=== PATIENT | female | born 1930 | race Caucasian/White ===

== ENCOUNTER 2018-12-27 12:32 | Inpatient (IN) | payer MEDICARE, OTHER ==
[~2018-12-27] VITALS: Ht 160 cm; Wt 76.0 kg
[2018-12-27] MEDS ORDERED: AMLO2.5T78 PO (13:42)
[2018-12-27] MEDS ORDERED: CALC500T91 PO (13:42)
[2018-12-27] MEDS ORDERED: DAP100 PO (13:43)
[2018-12-27] MEDS ORDERED: IPRATROPIUM (NEB) 0.5 MG/2.5 ML AMP NEB STA (13:47)
[2018-12-27] MEDS ORDERED: ALBUTEROL 0.083% (NEB) 2.5 MG/3 ML AMP NEB STA (13:47)
[2018-12-27] MEDS ORDERED: FURO-110 PO (14:28)
[2018-12-27] MEDS ORDERED: LEVO200T6 PO (14:28)
[2018-12-27] MEDS ORDERED: FER325 PO (14:28)
[2018-12-27] MEDS ORDERED: LISI40TA3 PO (14:29)
[2018-12-27] MEDS ORDERED: METO-319 PO (14:29)
[2018-12-27] MEDS ORDERED: MULTI PO (14:29)
[2018-12-27] MEDS ORDERED: OMEG1CAP2 PO (14:30)
[2018-12-27] MEDS ORDERED: ASCO500C7 PO (14:30)
[2018-12-27] MEDS ORDERED: ZOC10 PO (14:30)
[2018-12-27] MEDS ORDERED: COU5 PO (14:31)
[2018-12-27] MEDS ORDERED: VITA100T9 PO (14:31)
[2018-12-27] MEDS ORDERED: ACETAMINOPHEN 325 MG TAB PO PRN ×2 (15:00)
[2018-12-27] MEDS ORDERED: FUROSEMIDE 20 MG INJ IV ONE (15:00)
[2018-12-27] MEDS ORDERED: ONDANSETRON 4 MG INJ IV PRN ×2 (15:00)
--- NOTE | 2018-12-27 15:14 | ERD ---
ER Documentation Chief Complaint Chief Complaint BIB RA S/P GROUND LEVEL FALL HIT HEAD. ON COUMADIN. PT A&OX4 HPI History is unobtainable from patient given her clinical condition. This is an 88-year-old female with a history of dementia, hypertension, CHF and atrial fib who presents to the emergency room after ground-level fall. The patient was walking and she slid backwards and hit her head. There is no loss of consciousness however there was concern given the fact that she is on Coumadin. The patient was transported to the ER today for evaluation of her symptoms. According to EMS this patient is at her baseline and is only alert to person. ROS All systems reviewed and are negative except as per history of present illness. Medications Home Meds Reported Medications Warfarin Sod (Coumadin) 5 Mg Tab, 5 MG PO DAILY, TAB 12/27/18 Vitamin E Mixed (Vitamin E) 100 Unit Tablet, 400 UNIT PO DAILY, TAB 12/27/18 Ascorbic Acid* (Vitamin C*) 500 Mg Capsule.sa, 500 MG PO DAILY, CAP 12/27/18 Simvastatin (Simvastatin) 10 Mg Tablet, 10 MG PO QHS, #30 TAB 12/27/18 [place]-3 Acid Ethyl Esters (Lovaza) 1 Gm Capsule, 1 GM PO DAILY, CAP 12/27/18 Multivitamins* (Theragran*) 1 Tab Tab, 1 TAB PO DAILY, TAB 12/27/18 Metoprolol Succinate* (Toprol XL*) 50 Mg Tab.er.24h, 50 MG PO DAILY, #30 TAB 12/27/18 Lisinopril* (Lisinopril*) 40 Mg Tablet, 40 MG PO DAILY, #30 TAB 12/27/18 Levothyroxine Sodium* (Levothyroxine Sodium*) 200 Mcg Tablet, 200 MCG PO BEFORE BREAKFAST, #30 TAB 12/27/18 Furosemide* (Lasix*) 20 Mg Tablet, 20 MG PO DAILY, TAB 12/27/18 Ferrous Sulfate* (Ferrous Sulfate*) 325 Mg Tabec, 325 MG PO DAILY, TAB 12/27/18 Dapsone* (Dapsone*) 100 Mg Tablet, 50 MG PO DAILY, #30 TAB 12/27/18 Calcium Carbonate ([id number]) 500 Mg Tablet, 500 MG PO BID, TAB 12/27/18 Amlodipine Besylate* (Amlodipine Besylate*) 2.5 Mg Tablet, 2.5 MG PO DAILY, #30 TAB 12/27/18 Allergies Allergies: Coded Allergies: No Known Allergy (Unverified , 12/27/18) PMhx/Soc Anesthesia Reaction: No Hx Neurological Disorder: No Hx Respiratory Disorders: Yes (CRF) Hx Cardiac Disorders: Yes (HTN, CAD, CHF, CVA) Hx Psychiatric Problems: Yes (DEMENTIA) Hx Miscellaneous Medical Probl: No Hx Alcohol Use: No Hx Substance Use: No Hx Tobacco Use: No Smoking Status: Never smoker Physical Exam Vitals Vital Signs Date Temp Pulse Resp B/P (MAP) Pulse Ox O2 O2 Flow FiO2 Time Delivery Rate 12/27/18 107 23 184/89 100 Venturi 14:24 (120) Mask 12/27/18 2.0 13:57 12/27/18 99 20 95 Nasal 2.0 13:57 Cannula 12/27/18 99.4 90 16 175/80 99 12:38 (111) 12/27/18 Nasal 2 12:35 Cannula Physical Exam INITIAL VITAL SIGNS: Reviewed by me GENERAL: The patient is frail-appearing elderly female, mild respiratory distress HEENT: Small 2 cm x 2 cm occipital hematoma, no depressed skull fractures, pupils equal, round, and reactive to light. EOMI. There is no scleral icterus. NECK: C-spine is soft and supple, there is no meningismus. There is no cervical lymphadenopathy. LUNGS: Breath sounds bilaterally with end expiratory wheezing HEART: Irregularly irregular rhythm, no murmurs, clicks, rubs or gallops. ABDOMEN: Soft, non-tender, non-distended. There are bowel sounds in all four quadrants. No rebound or guarding. EXTREMITIES: There is no peripheral cyanosis or edema. No focal swelling or erythema. NEUROLOGICAL: The patient moves all four extremities with 5/5 strength. Cranial nerves II - XII are intact. Alert and oriented person only SKIN: There is no apparent rash or petechiae. HEME/LYMPHATIC: There is no evidence of excessive bruising or lymphedema. PSYCHIATRIC: The patient does not appear anxious or depressed. Result Diagram: 12/27/18 1250 12/27/18 1347 Results 24 hrs Laboratory Tests Test 12/27/18 12:50 12/27/18 13:47 White Blood Count 7.6 10^3/ul Red Blood Count 3.82 10^6/ul Hemoglobin 10.7 g/dl Hematocrit 35.1 % Mean Corpuscular Volume 91.9 fl Mean Corpuscular Hemoglobin 28.0 pg Mean Corpuscular Hemoglobin Concent 30.5 g/dl Red Cell Distribution Width 18.1 % Platelet Count 241 10^3/UL Mean Platelet Volume 10.1 fl Immature Granulocytes % 0.400 % Neutrophils % 85.0 % Lymphocytes % 5.4 % Monocytes % 8.8 % Eosinophils % 0.0 % Basophils % 0.4 % Nucleated Red Blood Cells % 0.0 /100WBC Immature Granulocytes # 0.030 10^3/ul Neutrophils # 6.5 10^3/ul Lymphocytes # 0.4 10^3/ul Monocytes # 0.7 10^3/ul Eosinophils # 0.0 10^3/ul Basophils # 0.0 10^3/ul Nucleated Red Blood Cells # 0.0 10^3/ul Prothrombin Time 14.7 Sec Prothrombin Time Ratio 1.1 INR International Normalized Ratio 1.14 Activated Partial Thromboplast Time 24.9 Sec Sodium Level 135 mmol/L Potassium Level 4.1 mmol/L Chloride Level 98 mmol/L Carbon Dioxide Level 25 mmol/L Anion Gap 12 Blood Urea Nitrogen 17 mg/dl Creatinine 0.47 mg/dl Est Glomerular Filtrat Rate mL/min mL/min Glucose Level 123 mg/dl Calcium Level 9.3 mg/dl Troponin I 0.025 ng/ml Current Medications Medications Dose Sig/Rock Start Time Status Last (Trade) Ordered Route PRN Stop Time Admin Dose Reason Admin Albuterol 5 mg ONCE STAT 12/27/18 DC 12/27/18 (Proventil NEB 13:47 13:56 0.083% (Neb)) 12/27/18 13:48 Ipratropium 0.5 mg ONCE STAT 12/27/18 DC 12/27/18 Evans NEB 13:47 13:56 (Atrovent 12/27/18 13:48 0.02% (Neb)) Furosemide 20 mg ONCE ONCE 12/27/18 DC (Lasix) IV 15:00 12/27/18 15:04 Ondansetron 4 mg ER BRIDGE 12/27/18 HCl (Zofran PRN IV 15:00 Inj) NAUSEA/VOMITI 12/28/18 14:59 NG 650 mg ER BRIDGE 12/27/18 Acetaminophen PRN PO 15:00 (Tylenol .MILD PAIN 12/28/18 14:59 Tab) 1-3 OR TEMP Ondansetron 4 mg ER BRIDGE 12/27/18 HCl (Zofran PRN IV 15:00 Inj) NAUSEA/VOMITI 12/28/18 14:59 NG 650 mg ER BRIDGE 12/27/18 Acetaminophen PRN PO 15:00 (Tylenol .MILD PAIN 12/28/18 14:59 Tab) 1-3 OR TEMP Procedures/MDM EKG: Rate/Rhythm: A. 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 There is age compatible cortical atrophy with proportional dilatation of the lateral ventricles. 2. There is encephalomalacia in the left frontal lobe laterally consistent with an old left MCA infarct. 3. Extensive deep white matter ischemic changes are present. 4. Small air-fluid level in the left maxillary sinus. This 88-year-old female presents to the emergency room for evaluation of ground- level fall. The patient is on Coumadin and slipped and fell backwards and hit her head. On my exam the patient did have a small occipital hematoma however there was no depressed skull fractures. CT the brain is normal with no signs of intracranial hemorrhage. This patient was mildly tachypneic and tachycardic on my initial examination. She does have coarse breath sounds bilaterally and was given a breathing treatment. After the breathing treatment the patient continued to have coarse breath sounds and was tachypneic and her pulse oxygen level was 91% on 2 L. Given her age, and her respiratory distress the patient will be placed in for admission at this time. Her chest x-ray does show some pulmonary vascular congestion and there could be a component of fluid overload for her at this time. I have spoken to admitting physician Dr. Saez who accepts this patient. The patient will be placed in for admission at this time on the telemetry floor. Departure Diagnosis: Primary Impression: Acute head injury Additional Impressions: CHF exacerbation Shortness of breath Condition: ORA Bansal DO Dec 27, 2018 15:14
[2018-12-27] MEDS ORDERED: FAMOTIDINE 20 MG TAB PO SCH (15:30)
[2018-12-27] MEDS ORDERED: NACL 0.9% 3 ML SYG IV SCH (15:30)
[2018-12-27 16:15] VITALS: BP 156/77; PULSE 85; RESP 18
[2018-12-27 16:36] VITALS: Ht 160 cm; Wt 76.0 kg
[2018-12-27] MEDS ORDERED: WARFARIN 5 MG TAB PO SCH (17:00)
[2018-12-27 17:23] VITALS: PULSE 82
[2018-12-27] MEDS: FAMOTIDINE 20 MG TAB PO SCH (18:24)
[2018-12-27] MEDS: LISINOPRIL 20 MG TAB PO SCH (18:25)
--- NOTE | 2018-12-27 19:46 | CONS ---
DATE OF ADMISSION: 12/27/2018 DATE OF CONSULTATION: 12/27/2018 REASON FOR CONSULTATION: Shortness of breath. Thank you, Dr. Krishna, for this consultation. HISTORY OF PRESENT ILLNESS: This is an 88-year-old lady who had a ground-level fall and brought to [facility] emergency room for further evaluation. Here, she has been somewhat confused and over the past few hours, has had worsening dyspnea. The patient is disoriented to place and person, unable to give me further details. PAST MEDICAL HISTORY: Essential hypertension, hypothyroidism and hyperlipidemia. MEDICATIONS: Include: 1. Coumadin. 2. Lisinopril. 3. Amlodipine. REVIEW OF SYSTEMS: A 12-point review of systems currently unable to perform. PHYSICAL EXAMINATION: GENERAL: Elderly-appearing lady, appears comfortable at rest, in no acute distress. No accessory mu scle use. VITAL SIGNS: Currently afebrile, pulse is 100, blood pressure 180/89, O2 saturation 96% on 2 liters nasal cannula. NECK: Supple. No JVD or lymphadenopathy. CARDIAC: S1, S2. No added sounds or murmurs. CHEST: Diminished air entry bilaterally. ABDOMEN: Soft, nontender. No guarding or rebound. EXTREMITIES: No cyanosis, clubbing. NEUROLOGIC: Appears grossly intact. No focal deficits. IMAGING: Chest x-ray was performed and shows mild CHF, possible small right effusion. CT of the bra in shows encephalomalacia with prior CVA. IMPRESSION: 1. Mechanical fall. 2. Congestive cardiac failure, likely etiology of her dyspnea. 3. History of essential hypertension. 4. History of chronic anticoagulation. RECOMMENDATIONS: 1. Discontinue chronic anticoagulation. 2. Fall precautions. 3. Aspiration precautions and speech therapy evaluation. 4. Gentle diuresis. 5. DVT and GI prophylaxes. 6. Address code status and goals of care. Dictated By: AYAZ HEWITT MD SV/NTS Conf#: [id number] DID#: [id number] CC: ROYER KRISHNA MD;*EndCC*
[2018-12-27 20:03] VITALS: BP 154/76; PULSE 89; RESP 18
[2018-12-27] MEDS: DAPSONE 100 MG TAB PO SCH (20:44)
[2018-12-27] MEDS ORDERED: FUROSEMIDE 40 MG INJ IV SCH (21:00)
--- NOTE | 2018-12-27 22:00 | HP ---
DATE OF ADMISSION: 12/27/2018 REASON FOR VISIT: Status post fall. HISTORY OF PRESENT ILLNESS: An 88-year-old female with hypertension, chronic congestive heart failure , and chronic atrial fibrillation who was brought into the emergency room after she had a ground leve l fall at a assisted facility. The patient hit her head against the ground. She reported mil d headaches. Initial evaluation in the emergency room included a CAT scan of the brain. There was no evidence of intracranial hemorrhage. However, the patient was found to be hypoxic. She was in atrial fibrillati on with normal rate. Chest x-ray showed mild pulmonary vascular congestion in wall and left-sided pl eural adhesion. PAST MEDICAL HISTORY: 1. Hypertension. 2. Congestive heart failure. 3. Chronic atrial fibrillation. 4. Alzheimer's dementia. 5. Hypothyroidism. PHYSICAL EXAMINATION: GENERAL: Well-developed, well-nourished elderly female who is in mild respiratory distress. VITAL SIGNS: Stable. She is afebrile. HEENT: Extraocular muscles intact. Pupils equal, round, and reactive to light bilaterally. Sclerae anicteric. Oropharynx is clear and moist. NECK: Supple. No JVD and no carotid bruits. LUNGS: Mild crackles at the bases. Bilateral rhonchi. CARDIAC: Irregularly irregular. No murmurs or gallops. ABDOMEN: Soft. Nontender and nondistended. Normoactive bowel sounds. EXTREMITIES: No clubbing, cyanosis, or edema. NEUROLOGIC: Grossly nonfocal. LABORATORY DATA: The patient's metabolic panel and CBC were within normal limits. INR was 1.4. ASSESSMENT: 1. An 88-year-old female status post nontraumatic ground level fall. 2. Congestive heart failure . 3. Chronic atrial fibrillation, weight controlled. 4. Hypertension. 5. Hypothyroidism. 6. Alzheimer's dementia. PLAN: 1. Place in tele observation. 2. IV Lasix 40 mg b.i.d. 3. Resume selective home medications. 4. Pulmonary consultation was requested. Dictated By: ROYER NIX/BERNIE Conf#: [id number] DID#: [id number] CC: ROYER STOKES MD; AYAZ HEWITT MD;*End*
[2018-12-27 23:05] VITALS: PULSE 81
[2018-12-28] VITALS (15 sets, daily range): BP systolic 124–150; BP diastolic 59–90; PULSE 71–114; RESP 18–22
[2018-12-28] MEDS: LEVOTHYROXINE 100 MCG TAB PO SCH (06:36)
[2018-12-28] MEDS ORDERED: POTASSIUM CHLORIDE (SR) 20 MEQ TAB PO STA (08:16)
[2018-12-28] MEDS: DAPSONE 100 MG TAB PO SCH (08:40)
[2018-12-28] MEDS: LISINOPRIL 20 MG TAB PO SCH (08:40)
[2018-12-28] MEDS: AMLODIPINE 2.5 MG TAB PO SCH (08:40)
[2018-12-28] MEDS ORDERED: METOPROLOL (XL) 50 MG TAB PO SCH (09:00)
[2018-12-28] MEDS: POTASSIUM CHLORIDE (SR) 20 MEQ TAB PO SCH ×2 (09:29→21:22)
[2018-12-28] MEDS: FUROSEMIDE 40 MG INJ IV SCH ×2 (09:29→21:23)
[2018-12-28] MEDS: ENOXAPARIN 40 MG/0.4 ML SYG SC SCH (09:30)
--- NOTE | 2018-12-28 10:10 | PN ---
Date/Time of Note Date/Time of Note DATE: 12/28/18 TIME: 10:04 Subjective Patient is nonverbal. Appears comfortable. Daughter was at the bedside. Objective Vitals Vital Signs Date Temp Pulse Resp B/P (MAP) Pulse Ox O2 O2 Flow FiO2 Time Delivery Rate 12/28/18 75 08:01 12/28/18 97.7 19 124/62 93 07:32 (82) 12/28/18 Nasal 4.0 06:00 Cannula 12/28/18 100 00:34 Intake and Output 12/27/18 12/27/18 12/28/18 1515:00 23:00 07:00 IntakeIntake Total 60 ml BalanceBalance 60 ml Lungs decreased breath sounds at the bases. Bilateral rhonchi Cardiac irregularly irregular Abdomen soft nontender nondistended normoactive bowel sounds Extremities no clubbing cyanosis or edema Neurological, patient is nonverbal due to her underlying dementia. She moves all extremities. Results Result Diagram: 12/28/18 0609 12/28/18 0609 Medications Medications Current Medications IV Flush (NS 3 ml) 3 ml PER PROTOCOL IV ; Start 12/27/18 at 15:30 Amlodipine Besylate (Norvasc) 2.5 mg DAILY PO Last administered on 12/28/18at 08:40; Admin Dose 2.5 MG; Start 12/28/18 at 09:00 Dapsone (Dapsone) 50 mg DAILY PO Last administered on 12/28/18at 08:40; Admin Dose 50 MG; Start 12/27/18 at 15:30 Levothyroxine Sodium (Synthroid) 200 mcg BEFORE BREAKFAST PO ; Start 12/28/18 at 07:00 Lisinopril (Zestril) 40 mg DAILY PO Last administered on 12/28/18at 08:40; Admin Dose 40 MG; Start 12/27/18 at 15:30 Metoprolol Succinate (Toprol Xl) 50 mg DAILY PO Last administered on 12/28/18at 08:39; Admin Dose 50 MG; Start 12/28/18 at 09:00 Famotidine (Pepcid) 20 mg Q24H PO Last administered on 12/27/18at 18:24; Admin Dose 20 MG; Start 12/27/18 at 17:00 Potassium Chloride (Klor-Con 20) 20 meq BID PO Last administered on 12/28/18at 09:29; Admin Dose 20 MEQ; Start 12/28/18 at 09:00 Enoxaparin Sodium (Lovenox) 40 mg DAILY SC Last administered on 12/28/18 09:30; Admin Dose 40 MG; Start 12/28/18 at 09:00 Furosemide (Lasix) 40 mg BID IV Last administered on 12/28/18 09:29; Admin Dose 40 MG; Start 12/28/18 at 09:30 VTE Prophylaxis Risk score (from Ns)>0 risk: 9 SCD applied (from Ns): Yes Lines/Catheters IV Catheter Type: Saline Lock Carvalho in Place: No Assessment/Plan Assessment/Plan 88-year-old female with acute CHF exacerbation Acute hypoxemic respiratory failure Chronic atrial fibrillation, rate controlled Status post multiple ground-level falls Advanced Alzheimer's dementia Subtherapeutic INR Hypertension Hyperkalemia Continue IV Lasix Potassium supplementation Discontinue Coumadin Lovenox 40 mg subcu daily I had a long discussion with patient's daughter, son, and [id number]. I believe the risk of blood thinner is higher than the benefit due to multiple falls and high risk of future intracranial hemorrhage. This was discussed in length with all family members. Her son requested cardiology evaluation. I also notified her PCP Dr. Martel. He agrees that Coumadin needs to be discontinued. Physical therapy Pulmonary follow-up Cardiology consultation was requested ROYER STOKES MD Dec 28, 2018 10:10
--- NOTE | 2018-12-28 12:20 | CONS ---
Consult Date/Type/Reason Admit Date/Time Dec 27, 2018 at 14:55 Initial Consult Date Type of Consult Pulmonary Date/Time of Note DATE: 12/28/18 TIME: 12:18 Subjective Sleeping this morning, didnt sleep much according to family. Ate breakfast without evidence of aspiration. Objective Vital Signs Date Temp Pulse Resp B/P (MAP) Pulse Ox O2 O2 Flow FiO2 Time Delivery Rate 12/28/18 97.3 86 19 140/73 92 11:24 (95) 12/28/18 Nasal 2.0 08:00 Cannula 12/28/18 100 00:34 Intake and Output 12/27/18 12/27/18 12/28/18 1515:00 23:00 07:00 IntakeIntake Total 60 ml BalanceBalance 60 ml Exam PHYSICAL EXAMINATION: GENERAL: Elderly-appearing lady, appears comfortable at rest, in no acute distress. No accessory muscle use. VITAL SIGNS: NECK: Supple. No JVD or lymphadenopathy. CARDIAC: S1, S2. No added sounds or murmurs. CHEST: Diminished air entry bilaterally. ABDOMEN: Soft, nontender. No guarding or rebound. EXTREMITIES: No cyanosis, clubbing. NEUROLOGIC: Appears grossly intact. No focal deficits. Vent Setting Fraction of Inspired Oxygen pe: 100 Results/Medications Result Diagram: 12/28/18 0609 12/28/18 0609 Results 24 hrs Laboratory Tests Test 12/27/18 12:50 12/27/18 13:47 12/27/18 19:22 12/28/18 00:33 White Blood Count 7.6 Red Blood Count 3.82 L Hemoglobin 10.7 L Hematocrit 35.1 L Mean Corpuscular 91.9 Volume Mean Corpuscular 28.0 L Hemoglobin Mean Corpuscular 30.5 L Hemoglobin Concent Red Cell 18.1 H Distribution Width Platelet Count 241 Mean Platelet Volume 10.1 Immature 0.400 Granulocytes % Neutrophils % 85.0 H Lymphocytes % 5.4 L Monocytes % 8.8 Eosinophils % 0.0 Basophils % 0.4 Nucleated Red Blood 0.0 Cells % Immature 0.030 Granulocytes # Neutrophils # 6.5 Lymphocytes # 0.4 L Monocytes # 0.7 Eosinophils # 0.0 Basophils # 0.0 Nucleated Red Blood 0.0 Cells # Prothrombin Time 14.7 Prothrombin Time 1.1 Ratio INR International 1.14 Normalized Ratio Activated 24.9 Partial Thromboplast Time Sodium Level 135 Potassium Level 4.1 Chloride Level 98 Carbon Dioxide Level 25 Anion Gap 12 Blood Urea Nitrogen 17 Creatinine 0.47 Est Glomerular Filtrat Rate mL/min Glucose Level 123 Calcium Level 9.3 Troponin I 0.025 0.026 0.033 B-Type Natriuretic 3890 H Peptide Creatine Kinase 211 H 306 H Creatine Kinase 1.6 1.3 Index Creatinine Kinase MB 3.41 H 3.89 H (Mass) Test 12/28/18 06:09 White Blood Count 6.0 # Red Blood Count 3.51 L Hemoglobin 9.9 L Hematocrit 30.7 L Mean Corpuscular 87.5 Volume Mean Corpuscular 28.2 L Hemoglobin Mean Corpuscular 32.2 Hemoglobin Concent Red Cell 17.9 H Distribution Width Platelet Count 196 Mean Platelet Volume 9.7 Immature 0.300 Granulocytes % Neutrophils % 82.2 H Lymphocytes % 6.4 L Monocytes % 10.6 Eosinophils % 0.0 Basophils % 0.5 Nucleated Red Blood 0.0 Cells % Immature 0.020 Granulocytes # Neutrophils # 4.9 Lymphocytes # 0.4 L Monocytes # 0.6 Eosinophils # 0.0 Basophils # 0.0 Nucleated Red Blood 0.0 Cells # Sodium Level 134 L Potassium Level 3.2 L Chloride Level 96 L Carbon Dioxide Level 30 Anion Gap 8 Blood Urea Nitrogen 22 H Creatinine 0.64 Est Glomerular Filtrat Rate mL/min Glucose Level 108 Hemoglobin A1c 4.7 Calcium Level 8.8 Phosphorus Level 4.1 Magnesium Level 1.9 Medications Current Medications IV Flush (NS 3 ml) 3 ml PER PROTOCOL IV ; Start 12/27/18 at 15:30 Amlodipine Besylate (Norvasc) 2.5 mg DAILY PO Last administered on 12/28/18at 08:40; Admin Dose 2.5 MG; Start 12/28/18 at 09:00 Dapsone (Dapsone) 50 mg DAILY PO Last administered on 12/28/18at 08:40; Admin Dose 50 MG; Start 12/27/18 at 15:30 Levothyroxine Sodium (Synthroid) 200 mcg BEFORE BREAKFAST PO ; Start 12/28/18 at 07:00 Lisinopril (Zestril) 40 mg DAILY PO Last administered on 12/28/18at 08:40; Admin Dose 40 MG; Start 12/27/18 at 15:30 Metoprolol Succinate (Toprol Xl) 50 mg DAILY PO Last administered on 12/28/18at 08:39; Admin Dose 50 MG; Start 12/28/18 at 09:00 Famotidine (Pepcid) 20 mg Q24H PO Last administered on 12/27/18at 18:24; Admin Dose 20 MG; Start 12/27/18 at 17:00 Potassium Chloride (Klor-Con 20) 20 meq BID PO Last administered on 12/28/18at 09:29; Admin Dose 20 MEQ; Start 12/28/18 at 09:00 Enoxaparin Sodium (Lovenox) 40 mg DAILY SC Last administered on 12/28/18at 09:30; Admin Dose 40 MG; Start 12/28/18 at 09:00 Furosemide (Lasix) 40 mg BID IV Last administered on 12/28/18at 09:29; Admin Dose 40 MG; Start 12/28/18 at 09:30 Assessment/Plan Hospital Course (Demo Recall) IMPRESSION: 1. Mechanical fall. 2. Congestive cardiac failure, likely etiology of her dyspnea. 3. History of essential hypertension. 4. History of chronic anticoagulation. RECOMMENDATIONS: 1. Discontinue chronic anticoagulation. 2. Fall precautions. 3. Aspiration precautions and speech therapy evaluation. 4. Gentle diuresis. 5. DVT and GI prophylaxes. discussed with family at bedside. AYAZ HEWITT MD, [facility] Dec 28, 2018 12:20
--- NOTE | 2018-12-28 16:31 | CONS ---
Assessment/Plan Cardiology NYHA: II Heart Failure Type: Acute Assessment/Plan Hospital Course (Demo Recall) Mechanical fall Atrial fibrillation on anticoagulation Acute decompensated congestive heart failure Hypertension Dementia -Patient presents after mechanical fall at assisted living. CT head with no evidence of intracranial bleed. Patient has been on Coumadin. Review of medical chart and discussion with patient's family at bedside, patient not study on her feet and concern for increasing fall risks. The risks of anticoagulation might outweigh the benefits. Consensus decision has been to stop anticoagulation. I did discuss this with the family. -Patient with evidence of decompensated congestive heart failure on examination, patient currently on IV diuretics, will check echocardiogram. PVCs seen on telemetry, would increase dose of beta-jamel. -Maintain potassium above 4.0 and magnesium above 2.0. Consultation Date/Type/Reason Admit Date/Time Dec 27, 2018 at 14:55 Type of Consult Cardiology Reason for Consultation Atrial fibrillation Date/Time of Note DATE: 12/28/18 TIME: 16:25 Hx of Present Illness This is an 88-year-old female with past medical history of atrial fibrillation on Coumadin, hypertension, dementia assisted living who presents after mechanical fall. Patient does not remember the fall. As per medical record and family, patient fell at the assisted living. She slipped backwards with head trauma. No known loss of consciousness. Patient denies any chest pain, shortness of breath, palpitations, dizziness or lightheadedness. She does complain of cough. Discussion with family, she does ambulate with a walker but is not always steady on her feet. 12 point review of systems was performed with all pertinent positives and neg atives mentioned above and all else is negative Past Medical History Hypertension Atrial fibrillation Dementia Home Meds Reported Medications Warfarin Sod (Coumadin) 5 Mg Tab, 5 MG PO DAILY, TAB 12/27/18 Vitamin E Mixed (Vitamin E) 100 Unit Tablet, 400 UNIT PO DAILY, TAB 12/27/18 Ascorbic Acid* (Vitamin C*) 500 Mg Capsule.sa, 500 MG PO DAILY, CAP 12/27/18 Simvastatin (Simvastatin) 10 Mg Tablet, 10 MG PO QHS, #30 TAB 12/27/[address] [place]-3 Acid Ethyl Esters (Lovaza) 1 Gm Capsule, 1 GM PO DAILY, CAP 12/27/18 Multivitamins* (Theragran*) 1 Tab Tab, 1 TAB PO DAILY, TAB 12/27/18 Metoprolol Succinate* (Toprol XL*) 50 Mg Tab.er.24h, 50 MG PO DAILY, #30 TAB 12/27/18 Lisinopril* (Lisinopril*) 40 Mg Tablet, 40 MG PO DAILY, #30 TAB 12/27/18 Levothyroxine Sodium* (Levothyroxine Sodium*) 200 Mcg Tablet, 200 MCG PO BEFORE BREAKFAST, #30 TAB 12/27/18 Furosemide* (Lasix*) 20 Mg Tablet, 20 MG PO DAILY, TAB 12/27/18 Ferrous Sulfate* (Ferrous Sulfate*) 325 Mg Tabec, 325 MG PO DAILY, TAB 12/27/18 Dapsone* (Dapsone*) 100 Mg Tablet, 50 MG PO DAILY, #30 TAB 12/27/18 Calcium Carbonate ([id number]) 500 Mg Tablet, 500 MG PO BID, TAB 12/27/18 Amlodipine Besylate* (Amlodipine Besylate*) 2.5 Mg Tablet, 2.5 MG PO DAILY, #30 TAB 12/27/18 Medications Current Medications IV Flush (NS 3 ml) 3 ml PER PROTOCOL IV ; Start 12/27/18 at 15:30 Amlodipine Besylate (Norvasc) 2.5 mg DAILY PO Last administered on 12/28/18at 08:40; Admin Dose 2.5 MG; Start 12/28/18 at 09:00 Dapsone (Dapsone) 50 mg DAILY PO Last administered on 12/28/18at 08:40; Admin Dose 50 MG; Start 12/27/18 at 15:30 Levothyroxine Sodium (Synthroid) 200 mcg BEFORE BREAKFAST PO ; Start 12/28/18 at 07:00 Lisinopril (Zestril) 40 mg DAILY PO Last administered on 12/28/18at 08:40; Admin Dose 40 MG; Start 12/27/18 at 15:30 Metoprolol Succinate (Toprol Xl) 50 mg DAILY PO Last administered on 12/28/18at 08:39; Admin Dose 50 MG; Start 12/28/18 at 09:00 Famotidine (Pepcid) 20 mg Q24H PO Last administered on 12/27/18at 18:24; Admin Dose 20 MG; Start 12/27/18 at 17:00 Potassium Chloride (Klor-Con 20) 20 meq BID PO Last administered on 12/28/18at 09:29; Admin Dose 20 MEQ; Start 12/28/18 at 09:00 Enoxaparin Sodium (Lovenox) 40 mg DAILY SC Last administered on 12/28/18at 09:30; Admin Dose 40 MG; Start 12/28/18 at 09:00 Furosemide (Lasix) 40 mg BID IV Last administered on 12/28/18at 09:29; Admin Dose 40 MG; Start 12/28/18 at 09:30 Allergies: Coded Allergies: No Known Allergy (Unverified , 12/27/18) Past Surgical History History of pacemaker Family History Significant Family History: no pertinent family hx Social History Smoking Status: Never smoker Exam/Review of Systems Vital Signs Vitals Vital Signs Date Temp Pulse Resp B/P (MAP) Pulse Ox O2 O2 Flow FiO2 Time Delivery Rate 12/28/18 83 15:51 12/28/18 98.5 18 126/59 92 15:41 (81) 12/28/18 Nasal 2.0 08:00 Cannula 12/28/18 100 00:34 Intake and Output 12/27/18 12/27/18 12/28/18 1515:00 23:00 07:00 IntakeIntake Total 60 ml BalanceBalance 60 ml Exam Exam Following commands, no apparent distress, unable to give history, family bedside Constitutional: alert Head: normocephalic Respiratory: other (Coarse breath sounds bilaterally, mild scattered crackles) Cardiovascular: regular rate and rhythm (With occasional irregularities, S1-S2 heard) Gastrointestinal: soft, non-tender, bowel sounds Extremities: edema (Trace) Labs Result Diagram: 12/28/18 0609 12/28/18 0609 Results 24hrs Laboratory Tests Test 12/27/18 19:22 12/28/18 00:33 12/28/18 06:09 Creatine Kinase 211 H 306 H Creatine Kinase Index 1.6 1.3 Creatinine Kinase MB (Mass) 3.41 H 3.89 H Troponin I 0.026 0.033 White Blood Count 6.0 # Red Blood Count 3.51 L Hemoglobin 9.9 L Hematocrit 30.7 L Mean Corpuscular Volume 87.5 Mean Corpuscular Hemoglobin 28.2 L Mean Corpuscular Hemoglobin Concent 32.2 Red Cell Distribution Width 17.9 H Platelet Count 196 Mean Platelet Volume 9.7 Immature Granulocytes % 0.300 Neutrophils % 82.2 H Lymphocytes % 6.4 L Monocytes % 10.6 Eosinophils % 0.0 Basophils % 0.5 Nucleated Red Blood Cells % 0.0 Immature Granulocytes # 0.020 Neutrophils # 4.9 Lymphocytes # 0.4 L Monocytes # 0.6 Eosinophils # 0.0 Basophils # 0.0 Nucleated Red Blood Cells # 0.0 Sodium Level 134 L Potassium Level 3.2 L Chloride Level 96 L Carbon Dioxide Level 30 Anion Gap 8 Blood Urea Nitrogen 22 H Creatinine 0.64 Est Glomerular Filtrat Rate mL/min Glucose Level 108 Hemoglobin A1c 4.7 Calcium Level 8.8 Phosphorus Level 4.1 Magnesium Level 1.9 Imaging Imaging ECG with atrial fibrillation at 80 bpm, left anterior fascicular block, QRS 110 ms, PVC, nonspecific ST abnormalities Medications Medications Current Medications IV Flush (NS 3 ml) 3 ml PER PROTOCOL IV ; Start 12/27/18 at 15:30 Amlodipine Besylate (Norvasc) 2.5 mg DAILY PO Last administered on 12/28/18 08:40; Admin Dose 2.5 MG; Start 12/28/18 at 09:00 Dapsone (Dapsone) 50 mg DAILY PO Last administered on 12/28/18 08:40; Admin Dose 50 MG; Start 12/27/18 at 15:30 Levothyroxine Sodium (Synthroid) 200 mcg BEFORE BREAKFAST PO ; Start 12/28/18 at 07:00 Lisinopril (Zestril) 40 mg DAILY PO Last administered on 12/28/18 08:40; Admin Dose 40 MG; Start 12/27/18 at 15:30 Metoprolol Succinate (Toprol Xl) 50 mg DAILY PO Last administered on 12/28/18 08:39; Admin Dose 50 MG; Start 12/28/18 at 09:00 Famotidine (Pepcid) 20 mg Q24H PO Last administered on 12/27/18 18:24; Admin Dose 20 MG; Start 12/27/18 at 17:00 Potassium Chloride (Klor-Con 20) 20 meq BID PO Last administered on 12/28/18 09:29; Admin Dose 20 MEQ; Start 12/28/18 at 09:00 Enoxaparin Sodium (Lovenox) 40 mg DAILY SC Last administered on 2/28/19at 09:30; Admin Dose 40 MG; Start 12/28/18 at 09:00 Furosemide (Lasix) 40 mg BID IV Last administered on 12/28/18at 09:29; Admin Dose 40 MG; Start 12/28/18 at 09:30 Sin Nava DO Dec 28, 2018 16:31
[2018-12-28] MEDS: FAMOTIDINE 20 MG TAB PO SCH (16:46)
[2018-12-28] MEDS ORDERED: MAGNESIUM SULFATE 2 GM/50 ML 50 ML IVPB ONE (17:30)
[2018-12-28] MEDS ORDERED: QUETIAPINE 25 MG TAB PO ONE ×2 (19:30)
[2018-12-28] MEDS ORDERED: LORAZEPAM 2 MG INJ IV ONE (21:00)
[2018-12-28] MEDS: METOPROLOL (XL) 50 MG TAB PO SCH (21:22)
[2018-12-29] VITALS (13 sets, daily range): BP systolic 125–157; BP diastolic 63–89; PULSE 60–94; RESP 18–22
[2018-12-29] MEDS ORDERED: POTASSIUM CHLORIDE (SR) 20 MEQ TAB PO SCH (08:30)
[2018-12-29] MEDS: FUROSEMIDE 40 MG INJ IV SCH (09:16)
[2018-12-29] MEDS: LEVOTHYROXINE 100 MCG TAB PO SCH (09:19)
[2018-12-29] MEDS: LISINOPRIL 20 MG TAB PO SCH (09:20)
[2018-12-29] MEDS: DAPSONE 100 MG TAB PO SCH (09:21)
[2018-12-29] MEDS: AMLODIPINE 2.5 MG TAB PO SCH (09:21)
[2018-12-29] MEDS: POTASSIUM CHLORIDE (SR) 20 MEQ TAB PO SCH ×2 (09:21→20:56)
[2018-12-29] MEDS: METOPROLOL (XL) 50 MG TAB PO SCH ×2 (09:22→20:56)
[2018-12-29] MEDS: ENOXAPARIN 40 MG/0.4 ML SYG SC SCH (09:28)
--- NOTE | 2018-12-29 11:33 | RADRPT ---
Echocardiogram Report Patient Name: JOSE JUAN ARVIZUPatient ID: [id number] : 1930 (88y 7m)Study Date: 12/29/2018 7:32:03 AM Gender: FAccession #: [id number] Tech: Radha Loving [facility] Location: 629 Ref.Physician: SIN NAVA Height(Cm): BSA: Weight(Kg): Quality: AdequateAccount #: Procedures: Echocardiographic Report: Transthoracic echocardiogram with complete 2D, M-Mode, and doppler examination. Indications: Congestive Heart Failure. Measurements: 2D/M Mode Doppler Measurement Value Normal Range Measurement Value Normal Range LVIDd 2D 4.4 [ 3.8 - 5.2 ] cm CHELO VTI 0.8 [ 2.0 - 4.0 ] cm2 LVIDs 2D 3.0 [ 2.2 - 3.5 ] cm AV Mean Rik 1.9 [ 70.0 - 90.0 ] cm/sec LVPWd 2D 1.1 [ 0.6 - 0.9 ] cm AV Mean PG 17.0 [ 2.0 - 4.0 ] mmHg IVSd 2D 1.4 [ 0.6 - 0.9 ] cm AV Peak Rik 0.5 [ 100.0 - 170.0 ] cm/sec AoR Diam 2D 2.3 [ 2.3 - 3.1 ] cm AV Peak PG 1.0 [ 2.0 - 9.0 ] mmHg EDV 2D 87.2 [ 46.0 - 106.0 ] ml AV VTI 59.2 cm ESV 2D 36.2 [ 14.0 - 42.0 ] ml LVOT Mean Rik 0.5 [ 60.0 - 80.0 ] cm/sec EF 2D 58.5 [ 54.0 - 74.0 ] percent LVOT Mean PG 1.0 [ 1.0 - 3.0 ] mmHg LA Dimen 2D 4.5 [ 2.7 - 3.8 ] cm LVOT Peak Rik 0.8 [ 70.0 - 110.0 ] cm/sec LVOT Diam 1.9 [ 2.1 - 2.5 ] cm LVOT Peak PG 2.0 [ 2.0 - 6.0 ] mmHg LVOT VTI 16.6 [ 20.0 - 30.0 ] cm MV E Peak Rik 1.2 [ 60.0 - 130.0 ] cm/sec MV Peak Rik 1.3 [ 60.0 - 130.0 ] cm/sec MV Peak PG 7.0 [ 1.0 - 10.0 ] mmHg MV Mean Rik 0.6 cm/sec MV Mean PG 2.0 mmHg MV Decel Time 162 [ 104 - 258 ] msec Lat E` Rik 0.1 [ 10.0 - 15.0 ] cm/sec Lateral E/E` 12.1 [ 1.0 - 2.0 ] ratio MV VTI 36.1 cm MVA VTI 1.3 cm TR Peak Rik 3.4 [ 100.0 - 280.0 ] cm/sec TR Peak PG 46.0 mmHg RVSP 61.0 [ 10.0 - 36.0 ] mmHg RA Pressure 15.0 mmHg Findings: Left Ventricle: Normal left ventricular systolic function. Normal left ventricular cavity size. Moderate concentric left ventricular hypertrophy. Ejection fraction is visually estimated at 55 %. Abnormal Diastolic Function. Right Ventricle: Normal right ventricular size. Normal right ventricular systolic function. Pacemaker right heart. Left Atrium: There is moderate enlargement of left atrium. Right Atrium: There is moderate enlargement of right atrium. Mitral Valve: Mitral valve leaflets appear mildly thickened. Moderate mitral annular calcification. Mild to moderate mitral valve regurgitation. Aortic Valve: Mild aortic stenosis. Aortic cusps appear severely calcified. Trace to mild aortic valve regurgitation. Tricuspid Valve: Normal appearance of the tricuspid valve. Estimated peak PA systolic pressure 61 mmHg. There is moderate to severe tricuspid regurgitation. Pulmonic Valve: Normal pulmonic valve appearance. There is mild pulmonic regurgitation. Pericardium: Normal pericardium with no significant pericardial effusion. Aorta: Normal aortic root. IVC: Dilated IVC without respiratory collapse consistent with elevated right atrial pressure. Conclusions: Normal left ventricular systolic function. Normal left ventricular cavity size. Moderate concentric left ventricular hypertrophy. Ejection fraction is visually estimated at 55 %. Abnormal Diastolic Function. Normal right ventricular size. Normal right ventricular systolic function. Pacemaker right heart. There is moderate enlargement of left atrium. There is moderate enlargement of right atrium. Mild to moderate mitral valve regurgitation. Mild aortic stenosis. Trace to mild aortic valve regurgitation. Estimated peak PA systolic pressure 61 mmHg. There is moderate to severe tricuspid regurgitation. Normal pericardium with no significant pericardial effusion. Electronically Signed By: Sin Nava 2018-12-29 11:32:00 PST
--- NOTE | 2018-12-29 11:42 | CONS ---
Assessment/Plan Cardiology NYHA: II Heart Failure Type: Acute on Chronic Heart Failure Type: Diastolic Assessment/Plan Hospital Course (Demo Recall) Mechanical fall Atrial fibrillation, taken off anticoagulation secondary to recurrent falls Acute decompensated diastolic congestive heart failure Preserved ejection fraction Mitral and tricuspid valve regurgitation Hypertension Dementia -Patient presents after mechanical fall at assisted living. CT head with no evidence of intracranial bleed. Patient has been on Coumadin. Review of medical chart and discussion with patient's family at bedside, patient not steady on her feet and concern for increasing fall risks including recently as a trauma. The risks of anticoagulation might outweigh the benefits. Consensus decision has been to stop anticoagulation. I did discuss this with the family. -Patient with hypoxia after removal of oxygen in discussion with physical therapy. Would give Bumex drip today. -Continue beta-jamel and CAREY inhibitor as tolerated -Maintain potassium above 4.0 and magnesium above 2.0. Consultation Date/Type/Reason Admit Date/Time Dec 27, 2018 at 14:55 Initial Consult Date Type of Consult Cardiology Date/Time of Note DATE: 12/29/18 TIME: 11:39 24 HR Interval Summary Free Text/Dictation Denies shortness of breath, palpitations or chest pain. In discussion with physical therapy, patient was hypoxic prior to initiation of therapy but patient was off oxygen Exam/Review of Systems Vital Signs Vitals Vital Signs Date Temp Pulse Resp B/P (MAP) Pulse Ox O2 O2 Flow FiO2 Time Delivery Rate 12/29/18 Nasal 4.0 10:21 Cannula 12/29/18 60 08:25 12/29/18 97.9 19 149/73 96 07:22 (98) 12/28/18 100 00:34 Intake and Output 12/28/18 12/28/18 12/29/18 1515:00 23:00 07:00 IntakeIntake Total 800 ml BalanceBalance 800 ml Exam Exam Following commands, coughing at times Constitutional: alert Head: normocephalic Respiratory: other (Coarse breath sounds with scattered crackles, mild wheezing) Cardiovascular: regular rate and rhythm (S1-S2 heard), systolic murmur Gastrointestinal: soft, non-tender, bowel sounds Extremities: edema Labs Result Diagram: 12/28/18 0609 12/29/18 0519 Results 24hrs Laboratory Tests Test 12/28/18 21:30 12/29/18 05:19 Urine Color YELLOW Urine Clarity CLEAR Urine pH 5.0 Urine Specific [place] 1.013 Urine Ketones NEGATIVE Urine Nitrite NEGATIVE Urine Bilirubin NEGATIVE Urine Urobilinogen NEGATIVE Urine Leukocyte Esterase NEGATIVE Urine Microscopic RBC 2 Urine Microscopic WBC 0 Urine Hemoglobin NEGATIVE Urine Glucose NEGATIVE Urine Total Protein 1+ H Sodium Level 139 Potassium Level 3.4 L Chloride Level 96 L Carbon Dioxide Level 36 H Anion Gap 7 Blood Urea Nitrogen 27 H Creatinine 0.67 Est Glomerular Filtrat Rate mL/min Glucose Level 83 Calcium Level 8.4 Medications Medications Current Medications IV Flush (NS 3 ml) 3 ml PER PROTOCOL IV ; Start 12/27/18 at 15:30 Amlodipine Besylate (Norvasc) 2.5 mg DAILY PO Last administered on 12/29/18 09:21; Admin Dose 2.5 MG; Start 12/28/18 at 09:00 Dapsone (Dapsone) 50 mg DAILY PO Last administered on 12/29/18 09:21; Admin Dose 50 MG; Start 12/27/18 at 15:30 Levothyroxine Sodium (Synthroid) 200 mcg BEFORE BREAKFAST PO Last administered on 12/29/18 09:19; Admin Dose 200 MCG; Start 12/28/18 at 07:00 Lisinopril (Zestril) 40 mg DAILY PO Last administered on 12/29/18 09:20; Admin Dose 40 MG; Start 12/27/18 at 15:30 Famotidine (Pepcid) 20 mg Q24H PO Last administered on 12/28/18at 16:46; Admin Dose 20 MG; Start 12/27/18 at 17:00 Potassium Chloride (Klor-Con 20) 20 meq BID PO Last administered on 12/29/18 09:21; Admin Dose 20 MEQ; Start 12/28/18 at 09:00 Enoxaparin Sodium (Lovenox) 40 mg DAILY SC Last administered on 12/29/18 09:28; Admin Dose 40 MG; Start 12/28/18 at 09:00 Furosemide (Lasix) 40 mg BID IV Last administered on 12/29/18 09:16; Admin Dose 40 MG; Start 12/28/18 at 09:30 Metoprolol Succinate (Toprol Xl) 50 mg BID PO Last administered on 12/29/18 09:22; Admin Dose 50 MG; Start 12/28/18 at 21:00 Haloperidol (Haldol) 2 mg Q4H PRN IV AGITATION/ANXIETY; Start 12/29/18 at 09:30 Sin Nava DO Dec 29, 2018 11:42
[2018-12-29] MEDS ORDERED: BUMETANIDE 3 MG in DEXTROSE 5% 18 ML IV ONE (13:30)
--- NOTE | 2018-12-29 15:19 | CONS ---
Consult Date/Type/Reason Admit Date/Time Dec 27, 2018 at 14:55 Initial Consult Date Type of Consult Pulmonary Date/Time of Note DATE: 12/29/18 TIME: 15:15 Subjective Less confused, still coughing. Objective Vital Signs Date Temp Pulse Resp B/P (MAP) Pulse Ox O2 O2 Flow FiO2 Time Delivery Rate 12/29/18 63 138/63 13:44 (88) 12/29/18 98.5 18 93 12:00 12/29/18 Nasal 4.0 10:21 Cannula 12/28/18 100 00:34 Intake and Output 12/28/18 12/28/18 12/29/18 1414:59 22:59 06:59 IntakeIntake Total 800 ml BalanceBalance 800 ml Vent Setting Fraction of Inspired Oxygen pe: 100 Results/Medications Result Diagram: 12/28/18 0609 12/29/18 05 Results 24 hrs Laboratory Tests Test 12/28/18 21:30 12/29/18 05:19 Urine Color YELLOW Urine Clarity CLEAR Urine pH 5.0 Urine Specific [place] 1.013 Urine Ketones NEGATIVE Urine Nitrite NEGATIVE Urine Bilirubin NEGATIVE Urine Urobilinogen NEGATIVE Urine Leukocyte Esterase NEGATIVE Urine Microscopic RBC 2 Urine Microscopic WBC 0 Urine Hemoglobin NEGATIVE Urine Glucose NEGATIVE Urine Total Protein 1+ H Sodium Level 139 Potassium Level 3.4 L Chloride Level 96 L Carbon Dioxide Level 36 H Anion Gap 7 Blood Urea Nitrogen 27 H Creatinine 0.67 Est Glomerular Filtrat Rate mL/min Glucose Level 83 Calcium Level 8.4 Medications Current Medications IV Flush (NS 3 ml) 3 ml PER PROTOCOL IV ; Start 12/27/18 at 15:30 Amlodipine Besylate (Norvasc) 2.5 mg DAILY PO Last administered on 12/29/18at 09:21; Admin Dose 2.5 MG; Start 12/28/18 at 09:00 Dapsone (Dapsone) 50 mg DAILY PO Last administered on 12/29/18 09:21; Admin Dose 50 MG; Start 12/27/18 at 15:30 Levothyroxine Sodium (Synthroid) 200 mcg BEFORE BREAKFAST PO Last administered on 12/29/18 09:19; Admin Dose 200 MCG; Start 12/28/18 at 07:00 Lisinopril (Zestril) 40 mg DAILY PO Last administered on 12/29/18at 09:20; Admin Dose 40 MG; Start 12/27/18 at 15:30 Famotidine (Pepcid) 20 mg Q24H PO Last administered on 12/28/18at 16:46; Admin Dose 20 MG; Start 12/27/18 at 17:00 Potassium Chloride (Klor-Con 20) 20 meq BID PO Last administered on 12/29/18at 09:21; Admin Dose 20 MEQ; Start 12/28/18 at 09:00 Enoxaparin Sodium (Lovenox) 40 mg DAILY SC Last administered on 12/29/18at 09:28; Admin Dose 40 MG; Start 12/28/18 at 09:00 Metoprolol Succinate (Toprol Xl) 50 mg BID PO Last administered on 12/29/18at 09:22; Admin Dose 50 MG; Start 12/28/18 at 21:00 Haloperidol (Haldol) 2 mg Q4H PRN IV AGITATION/ANXIETY; Start 12/29/18 at 09:30 Furosemide (Lasix) 40 mg BID DIURETICS IV ; Start 12/30/18 at 06:00 Bumetanide 3 mg/ Dextrose 30 ml @ 16.667 mls/ hr Q1H48M ONCE IV Last administered on 12/29/18at 13:43; Admin Dose 16.667 MLS/HR; Start 12/29/18 at 13:30; Stop 12/29/18 at 15:17 Assessment/Plan Hospital Course (Demo Recall) IMPRESSION: 1. Mechanical fall. 2. Congestive cardiac failure, likely etiology of her dyspnea. 3. History of essential hypertension. 4. History of chronic anticoagulation. RECOMMENDATIONS: 1. anticoagulation per primary team. 2. Fall precautions. 3. Aspiration precautions and speech therapy evaluation. 4. Gentle diuresis. 5. DVT and GI prophylaxes. AYAZ HEWITT MD, [facility] Dec 29, 2018 15:19
[2018-12-29] MEDS: FAMOTIDINE 20 MG TAB PO SCH (17:51)
[2018-12-29] MEDS: HALOPERIDOL 5 MG INJ IV PRN (23:23)
[2018-12-30] VITALS (11 sets, daily range): BP systolic 133–163; BP diastolic 61–73; PULSE 63–83; RESP 17–20
[2018-12-30] MEDS ORDERED: FUROSEMIDE 40 MG INJ IV SCH (06:00)
[2018-12-30] MEDS: LEVOTHYROXINE 100 MCG TAB PO SCH (06:11)
[2018-12-30] MEDS: DAPSONE 100 MG TAB PO SCH (10:36)
[2018-12-30] MEDS: POTASSIUM CHLORIDE (SR) 20 MEQ TAB PO SCH ×2 (10:37→20:37)
[2018-12-30] MEDS: METOPROLOL (XL) 50 MG TAB PO SCH ×2 (10:37→20:39)
[2018-12-30] MEDS: LISINOPRIL 20 MG TAB PO SCH (10:37)
[2018-12-30] MEDS: AMLODIPINE 2.5 MG TAB PO SCH (10:37)
--- NOTE | 2018-12-30 10:57 | CONS ---
Assessment/Plan Cardiology NYHA: II Heart Failure Type: Acute on Chronic Heart Failure Type: Diastolic Assessment/Plan Assessment/Plan (Daily) Mechanical fall Atrial fibrillation, taken off anticoagulation secondary to recurrent falls Acute decompensated diastolic congestive heart failure Preserved ejection fraction Mitral and tricuspid valve regurgitation Hypertension Dementia -Patient presents after mechanical fall at assisted living. CT head with no evidence of intracranial bleed. Patient has been on Coumadin. Review of medical chart and discussion with patient's family at bedside, patient not steady on her feet and concern for increasing fall risks including recently as a trauma. The risks of anticoagulation might outweigh the benefits. Consensus decision has been to stop anticoagulation. I did discuss this with the family. -Patient with hypoxia after removal of oxygen in discussion with physical therapy. -Continue beta-jamel and CAREY inhibitor as tolerated -Maintain potassium above 4.0 and magnesium above 2.0. Consultation Date/Type/Reason Admit Date/Time Dec 27, 2018 at 14:55 Initial Consult Date Type of Consult Cardiology Date/Time of Note DATE: 12/30/18 TIME: 10:56 24 HR Interval Summary Free Text/Dictation The patient stable overnight Exam/Review of Systems Vital Signs Vitals Vital Signs Date Temp Pulse Resp B/P (MAP) Pulse Ox O2 O2 Flow FiO2 Time Delivery Rate 12/30/18 80 08:35 12/30/18 98.3 20 149/67 93 07:44 (94) 12/30/18 4.0 01:02 12/29/18 Nasal 20:40 Cannula 12/28/18 100 00:34 Intake and Output 12/29/18 12/29/18 12/30/18 1414:59 22:59 06:59 IntakeIntake Total 600 ml BalanceBalance 600 ml Labs Result Diagram: 12/28/18 0609 12/30/18 0516 Results 24hrs Laboratory Tests Test 12/30/18 05:16 Sodium Level 139 Potassium Level 3.5 Chloride Level 98 Carbon Dioxide Level 35 H Anion Gap 6 Blood Urea Nitrogen 27 H Creatinine 0.56 Est Glomerular Filtrat Rate mL/min Glucose Level 86 Calcium Level 8.6 Medications Medications Current Medications IV Flush (NS 3 ml) 3 ml PER PROTOCOL IV ; Start 12/27/18 at 15:30 Amlodipine Besylate (Norvasc) 2.5 mg DAILY PO Last administered on 12/29/18at 09:21; Admin Dose 2.5 MG; Start 12/28/18 at 09:00 Dapsone (Dapsone) 50 mg DAILY PO Last administered on 12/29/18 09:21; Admin Dose 50 MG; Start 12/27/18 at 15:30 Levothyroxine Sodium (Synthroid) 200 mcg BEFORE BREAKFAST PO Last administered on 12/30/18 06:11; Admin Dose 200 MCG; Start 12/28/18 at 07:00 Lisinopril (Zestril) 40 mg DAILY PO Last administered on 12/29/18 09:20; Admin Dose 40 MG; Start 12/27/18 at 15:30 Famotidine (Pepcid) 20 mg Q24H PO Last administered on 12/29/18 17:51; Admin Dose 20 MG; Start 12/27/18 at 17:00 Potassium Chloride (Klor-Con 20) 20 meq BID PO Last administered on 12/29/18 20:56; Admin Dose 20 MEQ; Start 12/28/18 at 09:00 Enoxaparin Sodium (Lovenox) 40 mg DAILY SC Last administered on 12/29/18 09:28; Admin Dose 40 MG; Start 12/28/18 at 09:00 Metoprolol Succinate (Toprol Xl) 50 mg BID PO Last administered on 12/29/18 20:56; Admin Dose 50 MG; Start 12/28/18 at 21:00 Haloperidol (Haldol) 2 mg Q4H PRN IV AGITATION/ANXIETY Last administered on 12/29/18 23:23; Admin Dose 2 MG; Start 12/29/18 at 09:30 Bumetanide 6 mg/ Dextrose 60 ml @ 10 mls/hr Q6H ONCE IV ; Start 12/30/18 at 11:00 ; Stop 12/30/18 at 16:59 SANDRA FARNSWORTH MD Dec 30, 2018 10:57
[2018-12-30] MEDS ORDERED: BUMETANIDE 6 MG in DEXTROSE 5% 36 ML IV ONE (11:00)
--- NOTE | 2018-12-30 11:09 | PN ---
Date/Time of Note Date/Time of Note DATE: 12/30/18 TIME: 11:06 Subjective Patient is alert and responsive. No complaints of shortness of breath or chest pain. Objective Vitals Vital Signs Date Temp Pulse Resp B/P (MAP) Pulse Ox O2 O2 Flow FiO2 Time Delivery Rate 12/30/18 80 08:35 12/30/18 98.3 20 149/67 93 07:44 (94) 12/30/18 4.0 01:02 12/29/18 Nasal 20:40 Cannula 12/28/18 100 00:34 Intake and Output 12/29/18 12/29/18 12/30/18 1515:00 23:00 07:00 IntakeIntake Total 600 ml BalanceBalance 600 ml Neck is supple no JVD Lungs decreased breath sound at the bases Cardiac irregularly irregular Abdomen soft nontender nondistended normoactive bowel sounds Extremities with mild edema Results Result Diagram: 12/28/18 0609 12/30/18 0516 Medications Medications Current Medications IV Flush (NS 3 ml) 3 ml PER PROTOCOL IV ; Start 12/27/18 at 15:30 Amlodipine Besylate (Norvasc) 2.5 mg DAILY PO Last administered on 12/29/18 09:21; Admin Dose 2.5 MG; Start 12/28/18 at 09:00 Dapsone (Dapsone) 50 mg DAILY PO Last administered on 12/29/18 09:21; Admin Dose 50 MG; Start 12/27/18 at 15:30 Levothyroxine Sodium (Synthroid) 200 mcg BEFORE BREAKFAST PO Last administered on 12/30/18 06:11; Admin Dose 200 MCG; Start 12/28/18 at 07:00 Lisinopril (Zestril) 40 mg DAILY PO Last administered on 12/29/18 09:20; Admin Dose 40 MG; Start 12/27/18 at 15:30 Famotidine (Pepcid) 20 mg Q24H PO Last administered on 12/29/18 17:51; Admin Dose 20 MG; Start 12/27/18 at 17:00 Potassium Chloride (Klor-Con 20) 20 meq BID PO Last administered on 12/29/18at 20:56; Admin Dose 20 MEQ; Start 12/28/18 at 09:00 Enoxaparin Sodium (Lovenox) 40 mg DAILY SC Last administered on 12/29/18at 09:28; Admin Dose 40 MG; Start 12/28/18 at 09:00 Metoprolol Succinate (Toprol Xl) 50 mg BID PO Last administered on 12/29/18at 20:56; Admin Dose 50 MG; Start 12/28/18 at 21:00 Haloperidol (Haldol) 2 mg Q4H PRN IV AGITATION/ANXIETY Last administered on 12/29/18at 23:23; Admin Dose 2 MG; Start 12/29/18 at 09:30 Bumetanide 6 mg/ Dextrose 60 ml @ 10 mls/hr Q6H ONCE IV ; Start 12/30/18 at 11:00; Stop 12/30/18 at 16:59 VTE Prophylaxis Risk score (from Ns)>0 risk: 6 SCD applied (from Ns): Yes Lines/Catheters IV Catheter Type: Saline Lock Giles in Place: Yes Cont'd giles catheter reason: pres ulcer contaminated by urine, skin wounds contaminated by urine, other (indicate) Assessment/Plan Assessment/Plan 88-year-old female with fluid overload Acute hypoxemic respiratory failure Chronic atrial fibrillation Advanced Alzheimer's dementia Start Bumex drip for 6 hours Cardiology follow-up Discharge planning to assisted living. Family members are refusing SNF placement ROYER STOKES MD Dec 30, 2018 11:09
[2018-12-30] MEDS: ENOXAPARIN 40 MG/0.4 ML SYG SC SCH (11:15)
[2018-12-30] MEDS: ALBUTEROL/IPRATROPIUM (NEB) 3 ML AMP HHN PRN (12:12)
--- NOTE | 2018-12-30 14:26 | CONS ---
Consult Date/Type/Reason Admit Date/Time Dec 27, 2018 at 14:55 Initial Consult Date Type of Consultation: Pulm Date/Time of Note DATE: 12/30/18 TIME: 14:23 Subjective No events overnight. Denies resting dyspnea. Objective Vitals Vital Signs Date Temp Pulse Resp B/P (MAP) Pulse Ox O2 O2 Flow FiO2 Time Delivery Rate 12/30/18 4.0 13:21 12/30/18 72 16 95 Nasal 40 12:15 Cannula 12/30/18 98.0 163/73 11:57 (103) Intake and Output 12/29/18 12/29/18 12/30/18 1515:00 23:00 07:00 IntakeIntake Total 600 ml BalanceBalance 600 ml Exam HEENT: Neck supple; no JVD; no LAD CVS: Irreg ireg, S1 and S2 CHEST: Bibasilar rales ABD: Soft, NT, + BS EXT: No c/c/e Results/Medications Result Diagram: 12/28/18 0609 12/30/18 0516 Results 24 hrs Laboratory Tests Test 12/30/18 05:16 Sodium Level 139 Potassium Level 3.5 Chloride Level 98 Carbon Dioxide Level 35 H Anion Gap 6 Blood Urea Nitrogen 27 H Creatinine 0.56 Est Glomerular Filtrat Rate mL/min Glucose Level 86 Calcium Level 8.6 Home Meds Reported Medications Warfarin Sod (Coumadin) 5 Mg Tab, 5 MG PO DAILY, TAB 12/27/18 Vitamin E Mixed (Vitamin E) 100 Unit Tablet, 400 UNIT PO DAILY, TAB 12/27/18 Ascorbic Acid* (Vitamin C*) 500 Mg Capsule.sa, 500 MG PO DAILY, CAP 12/27/18 Simvastatin (Simvastatin) 10 Mg Tablet, 10 MG PO QHS, #30 TAB 12/27/18 [place]-3 Acid Ethyl Esters (Lovaza) 1 Gm Capsule, 1 GM PO DAILY, CAP 12/27/18 Multivitamins* (Theragran*) 1 Tab Tab, 1 TAB PO DAILY, TAB 12/27/18 Metoprolol Succinate* (Toprol XL*) 50 Mg Tab.er.24h, 50 MG PO DAILY, #30 TAB 12/27/18 Lisinopril* (Lisinopril*) 40 Mg Tablet, 40 MG PO DAILY, #30 TAB 12/27/18 Levothyroxine Sodium* (Levothyroxine Sodium*) 200 Mcg Tablet, 200 MCG PO BEFORE BREAKFAST, #30 TAB 12/27/18 Furosemide* (Lasix*) 20 Mg Tablet, 20 MG PO DAILY, TAB 12/27/18 Ferrous Sulfate* (Ferrous Sulfate*) 325 Mg Tabec, 325 MG PO DAILY, TAB 12/27/18 Dapsone* (Dapsone*) 100 Mg Tablet, 50 MG PO DAILY, #30 TAB 12/27/18 Calcium Carbonate ([id number]) 500 Mg Tablet, 500 MG PO BID, TAB 12/27/18 Amlodipine Besylate* (Amlodipine Besylate*) 2.5 Mg Tablet, 2.5 MG PO DAILY, #30 TAB 12/27/18 Medications Current Medications IV Flush (NS 3 ml) 3 ml PER PROTOCOL IV ; Start 12/27/18 at 15:30 Amlodipine Besylate (Norvasc) 2.5 mg DAILY PO Last administered on 12/30/18 10:37; Admin Dose 2.5 MG; Start 12/28/18 at 09:00 Dapsone (Dapsone) 50 mg DAILY PO Last administered on 12/30/18 10:36; Admin Dose 50 MG; Start 12/27/18 at 15:30 Levothyroxine Sodium (Synthroid) 200 mcg BEFORE BREAKFAST PO Last administered on 12/30/18 06:11; Admin Dose 200 MCG; Start 12/28/18 at 07:00 Lisinopril (Zestril) 40 mg DAILY PO Last administered on 12/30/18 10:37; Admin Dose 40 MG; Start 12/27/18 at 15:30 Famotidine (Pepcid) 20 mg Q24H PO Last administered on 12/29/18 17:51; Admin Dose 20 MG; Start 12/27/18 at 17:00 Potassium Chloride (Klor-Con 20) 20 meq BID PO Last administered on 12/30/18 10:37; Admin Dose 20 MEQ; Start 12/28/18 at 09:00 Enoxaparin Sodium (Lovenox) 40 mg DAILY SC Last administered on 12/30/18 11:15; Admin Dose 40 MG; Start 12/28/18 at 09:00 Metoprolol Succinate (Toprol Xl) 50 mg BID PO Last administered on 3/2/19at 10:37; Admin Dose 50 MG; Start 12/28/18 at 21:00 Haloperidol (Haldol) 2 mg Q4H PRN IV AGITATION/ANXIETY Last administered on 12/29/18at 23:23; Admin Dose 2 MG; Start 12/29/18 at 09:30 Bumetanide 6 mg/ Dextrose 60 ml @ 10 mls/hr Q6H ONCE IV Last administered on 12/30/18at 11:42; Admin Dose 10 MLS/HR; Start 12/30/18 at 11:00; Stop 12/30/18 at 16:59 Albuterol/ Ipratropium (Duoneb) 3 ml Q6H RESP THERAPY PRN HHN SHORTNESS OF BREATH Last administered on 12/30/18at 12:12; Admin Dose 3 ML; Start 12/30/18 at 12 :00 Assessment/Plan Assessment/Plan (Daily) IMP: 1. ADHF with associated hypoxemia 2. Afib 3. s/p mechanical fall RECS: 1. Management as per cards. ELI GOMES MD Dec 30, 2018 14:26
[2018-12-30] MEDS: FAMOTIDINE 20 MG TAB PO SCH (17:55)
[2018-12-30] MEDS: HALOPERIDOL 5 MG INJ IV PRN (20:40)
[2018-12-30] MEDS ORDERED: QUETIAPINE 25 MG TAB PO ONE (23:30)
[2018-12-31] VITALS (15 sets, daily range): BP systolic 126–159; BP diastolic 58–74; PULSE 67–92; RESP 17–20
[2018-12-31] MEDS: ALBUTEROL/IPRATROPIUM (NEB) 3 ML AMP HHN PRN (01:44)
[2018-12-31] MEDS: HALOPERIDOL 5 MG INJ IV PRN (03:26)
[2018-12-31] MEDS ORDERED: HYDROCODONE/APAP (5/325) TAB PO PRN ×2 (04:00)
[2018-12-31] MEDS: LEVOTHYROXINE 100 MCG TAB PO SCH (06:35)
[2018-12-31] MEDS ORDERED: POTASSIUM CHLORIDE (SR) 20 MEQ TAB PO STA (08:29)
[2018-12-31] MEDS: POTASSIUM CHLORIDE (SR) 20 MEQ TAB PO SCH ×2 (09:00→21:00)
[2018-12-31] MEDS ORDERED: FURO-110 PO (09:39)
[2018-12-31] MEDS ORDERED: POTA20TA15 PO (09:39)
[2018-12-31] MEDS ORDERED: FAMO20TA18 PO (09:39)
--- NOTE | 2018-12-31 09:40 | PDOCDIS ---
Discharge Instructions CONDITION [id number] Patient Condition: [id number] Fair HOME CARE INSTRUCTIONS: [id number] Diet Instructions: [id number] y FOLLOW UP/APPOINTMENTS Follow-up Plan pcp 1 week ROYER STOKES MD Dec 31, 2018 09:40
[2018-12-31] MEDS: LISINOPRIL 20 MG TAB PO SCH (09:41)
[2018-12-31] MEDS: METOPROLOL (XL) 50 MG TAB PO SCH ×2 (09:42→21:00)
[2018-12-31] MEDS: AMLODIPINE 2.5 MG TAB PO SCH (09:42)
[2018-12-31] MEDS: DAPSONE 100 MG TAB PO SCH (09:42)
[2018-12-31] MEDS: ENOXAPARIN 40 MG/0.4 ML SYG SC SCH (09:58)
[2018-12-31] MEDS ORDERED: BUMETANIDE 3 MG in DEXTROSE 5% 18 ML IV ONE (11:00)
--- NOTE | 2018-12-31 11:02 | CONS ---
Assessment/Plan Cardiology NYHA: II Heart Failure Type: Acute on Chronic Heart Failure Type: Diastolic Consultation Date/Type/Reason Admit Date/Time Dec 27, 2018 at 14:55 Initial Consult Date Type of Consult Cardiology Date/Time of Note DATE: 12/31/18 TIME: 11:01 24 HR Interval Summary Free Text/Dictation Mechanical fall Atrial fibrillation, taken off anticoagulation secondary to recurrent falls Acute decompensated diastolic congestive heart failure Preserved ejection fraction Mitral and tricuspid valve regurgitation Hypertension Dementia -Patient presents after mechanical fall at assisted living. CT head with no evidence of intracranial bleed. Patient has been on Coumadin. Review of medical chart and discussion with patient's family at bedside, patient not steady on her feet and concern for increasing fall risks including recently as a trauma. The risks of anticoagulation might outweigh the benefits. Consensus decision has been to stop anticoagulation. I did discuss this with the family. -Continue beta-jamel and CAREY inhibitor as tolerated -Maintain potassium above 4.0 and magnesium above 2.0. Exam/Review of Systems Vital Signs Vitals Vital Signs Date Temp Pulse Resp B/P (MAP) Pulse Ox O2 O2 Flow FiO2 Time Delivery Rate 12/31/18 72 18 126/58 96 Nasal 08:33 (80) Cannula 12/31/18 4.0 08:21 12/31/18 98.2 06:00 12/30/18 40 12:15 Intake and Output 12/30/18 12/30/18 12/31/18 1414:59 22:59 06:59 IntakeIntake Total 200 ml 950 ml OutputOutput Total 755 ml BalanceBalance 200 ml 195 ml Exam Constitutional: alert, oriented Respiratory: clear to auscultation Labs Result Diagram: 12/28/18 0609 12/31/18 0502 Results 24hrs Laboratory Tests Test 12/31/18 05:02 Sodium Level 137 Potassium Level 3.3 L Chloride Level 91 L Carbon Dioxide Level 38 H Anion Gap 8 Blood Urea Nitrogen 23 H Creatinine 0.59 Est Glomerular Filtrat Rate mL/min Glucose Level 113 Calcium Level 9.0 Medications Medications Current Medications IV Flush (NS 3 ml) 3 ml PER PROTOCOL IV ; Start 12/27/18 at 15:30 Amlodipine Besylate (Norvasc) 2.5 mg DAILY PO Last administered on 12/31/18at 09:42; Admin Dose 2.5 MG; Start 12/28/18 at 09:00 Dapsone (Dapsone) 50 mg DAILY PO Last administered on 12/31/18 09:42; Admin Dose 50 MG; Start 12/27/18 at 15:30 Levothyroxine Sodium (Synthroid) 200 mcg BEFORE BREAKFAST PO Last administered on 12/31/18 06:35; Admin Dose 200 MCG; Start 12/28/18 at 07:00 Lisinopril (Zestril) 40 mg DAILY PO Last administered on 12/31/18 09:41; Admin Dose 40 MG; Start 12/27/18 at 15:30 Famotidine (Pepcid) 20 mg Q24H PO Last administered on 12/30/18 17:55; Admin Dose 20 MG; Start 12/27/18 at 17:00 Potassium Chloride (Klor-Con 20) 20 meq BID PO Last administered on 12/31/18 09:00; Admin Dose 20 MEQ; Start 12/28/18 at 09:00 Enoxaparin Sodium (Lovenox) 40 mg DAILY SC Last administered on 12/31/18 09:58; Admin Dose 40 MG; Start 12/28/18 at 09:00 Metoprolol Succinate (Toprol Xl) 50 mg BID PO Last administered on 12/31/18 09:42; Admin Dose 50 MG; Start 12/28/18 at 21:00 Haloperidol (Haldol) 2 mg Q4H PRN IV AGITATION/ANXIETY Last administered on 12/31/18 03:26; Admin Dose 2 MG; Start 12/29/18 at 09:30 Albuterol/ Ipratropium (Duoneb) 3 ml Q6H RESP THERAPY PRN HHN SHORTNESS OF BREATH Last administered on 12/31/18 01:44; Admin Dose 3 ML; Start 12/30/18 at 12:00 Bumetanide 3 mg/ Dextrose 30 ml @ 16.667 mls/ hr Q1H48M ONCE IV ; Start 12/31/18 at 11:00; Stop 12/31/18 at 12:47 KUNAL ZABALA MD Dec 31, 2018 11:02
--- NOTE | 2018-12-31 14:27 | CONS ---
Consult Date/Type/Reason Admit Date/Time Dec 27, 2018 at 14:55 Initial Consult Date Type of Consultation: Pulm Date/Time of Note DATE: 12/31/18 TIME: 14:18 Subjective Remains on 3-4 liters oxygen via NC. Objective Vitals Vital Signs Date Temp Pulse Resp B/P (MAP) Pulse Ox O2 O2 Flow FiO2 Time Delivery Rate 12/31/18 74 12:37 12/31/18 98.2 20 135/60 90 10:00 (85) 12/31/18 Nasal 08:33 Cannula 12/31/18 4.0 08:21 12/30/18 40 12:15 Intake and Output 12/30/18 12/30/18 12/31/18 1515:00 23:00 07:00 IntakeIntake Total 200 ml 950 ml OutputOutput Total 755 ml BalanceBalance 200 ml 195 ml Exam HEENT: Neck supple; no JVD; no LAD CVS: Irreg irreg, S1 and S2 CHEST: Bibasilar rales ABD: Soft, NT, + BS EXT: No c/c/e Results/Medications Result Diagram: 12/28/18 0609 12/31/18 0502 Results 24 hrs Laboratory Tests Test 12/31/18 05:02 Sodium Level 137 Potassium Level 3.3 L Chloride Level 91 L Carbon Dioxide Level 38 H Anion Gap 8 Blood Urea Nitrogen 23 H Creatinine 0.59 Est Glomerular Filtrat Rate mL/min Glucose Level 113 Calcium Level 9.0 Home Meds Active Scripts Famotidine* (Famotidine*) 20 Mg Tablet, 20 MG PO Q24H for 30 Days, TAB Prov:ROYER STOKES MD 12/31/18 Potassium Chloride* (K-Dur*) 20 Meq Tab.prt.sr, 20 MEQ PO DAILY, #30 Prov:ROYER STOKES MD 12/31/18 Furosemide* (Lasix*) 20 Mg Tablet, 40 MG PO DAILY for 30 Days, TAB Prov:ROYER STOKES MD 12/31/18 Reported Medications Warfarin Sod (Coumadin) 5 Mg Tab, 5 MG PO DAILY, TAB 12/27/18 Vitamin E Mixed (Vitamin E) 100 Unit Tablet, 400 UNIT PO DAILY, TAB 12/27/18 Ascorbic Acid* (Vitamin C*) 500 Mg Capsule.sa, 500 MG PO DAILY, CAP 12/27/18 Simvastatin (Simvastatin) 10 Mg Tablet, 10 MG PO QHS, #30 TAB 12/27/18 [place]-3 Acid Ethyl Esters (Lovaza) 1 Gm Capsule, 1 GM PO DAILY, CAP 12/27/18 Multivitamins* (Theragran*) 1 Tab Tab, 1 TAB PO DAILY, TAB 12/27/18 Metoprolol Succinate* (Toprol XL*) 50 Mg Tab.er.24h, 50 MG PO DAILY, #30 TAB 12/27/18 Lisinopril* (Lisinopril*) 40 Mg Tablet, 40 MG PO DAILY, #30 TAB 12/27/18 Levothyroxine Sodium* (Levothyroxine Sodium*) 200 Mcg Tablet, 200 MCG PO BEFORE BREAKFAST, #30 TAB 12/27/18 Ferrous Sulfate* (Ferrous Sulfate*) 325 Mg Tabec, 325 MG PO DAILY, TAB 12/27/18 Dapsone* (Dapsone*) 100 Mg Tablet, 50 MG PO DAILY, #30 TAB 12/27/18 Calcium Carbonate ([id number]) 500 Mg Tablet, 500 MG PO BID, TAB 12/27/18 Amlodipine Besylate* (Amlodipine Besylate*) 2.5 Mg Tablet, 2.5 MG PO DAILY, #30 TAB 12/27/18 Medications Current Medications IV Flush (NS 3 ml) 3 ml PER PROTOCOL IV ; Start 12/27/18 at 15:30 Amlodipine Besylate (Norvasc) 2.5 mg DAILY PO Last administered on 12/31/18at 0 9:42; Admin Dose 2.5 MG; Start 12/28/18 at 09:00 Dapsone (Dapsone) 50 mg DAILY PO Last administered on 12/31/18at 09:42; Admin Dose 50 MG; Start 12/27/18 at 15:30 Levothyroxine Sodium (Synthroid) 200 mcg BEFORE BREAKFAST PO Last administered on 12/31/18at 06:35; Admin Dose 200 MCG; Start 12/28/18 at 07:00 Lisinopril (Zestril) 40 mg DAILY PO Last administered on 12/31/18at 09:41; Admin Dose 40 MG; Start 12/27/18 at 15:30 Famotidine (Pepcid) 20 mg Q24H PO Last administered on 12/30/18at 17:55; Admin Dose 20 MG; Start 12/27/18 at 17:00 Potassium Chloride (Klor-Con 20) 20 meq BID PO Last administered on 12/31/18 09:00; Admin Dose 20 MEQ; Start 12/28/18 at 09:00 Enoxaparin Sodium (Lovenox) 40 mg DAILY SC Last administered on 12/31/18 09:58; Admin Dose 40 MG; Start 12/28/18 at 09:00 Metoprolol Succinate (Toprol Xl) 50 mg BID PO Last administered on 12/31/18 09:42; Admin Dose 50 MG; Start 12/28/18 at 21:00 Haloperidol (Haldol) 2 mg Q4H PRN IV AGITATION/ANXIETY Last administered on 12/31/18 03:26; Admin Dose 2 MG; Start 12/29/18 at 09:30 Albuterol/ Ipratropium (Duoneb) 3 ml Q6H RESP THERAPY PRN HHN SHORTNESS OF BREATH Last administered on 12/31/18 01:44; Admin Dose 3 ML; Start 12/30/18 at 12:00 Assessment/Plan Assessment/Plan (Daily) IMP: 1. ADHF with associated hypoxemia 2. Afib 3. s/p mechanical fall RECS: 1. Continue to keep I < O's 2. Am CXR 3. Titrate FiO2 to 88-92% ELI GOMES MD Dec 31, 2018 14:27
--- NOTE | 2018-12-31 15:10 | DS ---
DATE OF ADMISSION: 12/27/2018 DATE OF DISCHARGE: 12/31/2018 DISCHARGE DIAGNOSES: 1. Acute diastolic congestive heart failure exacerbation. 2. Hypertension. 3. Status post nontraumatic fall. 4. Chronic atrial fibrillation. 5. Hypothyroidism. 6. Alzheimer's dementia. 7. Hyperlipidemia. HOSPITAL COURSE: An 88-year-old female with multiple noted medical problems, presented from assisted living following a ground-level fall. The patient hit her head against the ground. However, there was no traumatic brain injury. The patient had previously being on Coumadin for her atrial fibrillat ion. INR was 1.4. I had a long discussion with multiple family members including daughter, son and [id number]. I advised against Coumadin since the patient is at high risk of recurrent falls. Acc ording to family members, she had 2 recent fall episodes. Cardiology consultation was requested and Dr. Nava agreed with stopping the Coumadin. A 2D echo showed adequate ejection fraction. The octaviano ent received diuresis for several days. Initially, I recommended detention facility. Daughter was resistant to the plan and wanted the patient to go back to assisted living. I explained to [facility] members that she requires physical therapy and rehabilitation. The patient is no longer able to c are for herself. She is in stable condition for transition to detention facility. I increased the Lasix to 40 m g daily. The patient will receive another 3 hours of IV Bumex prior to discharge. Her oxygen satura tion was 90% on room air. DISCHARGE MEDICATIONS: 1. Norvasc 2.5 mg daily. 2. Dapsone 100 mg daily. 3. Levothyroxine 200 mcg daily. 4. Lisinopril 40 mg daily. 5. Metoprolol 50 mg daily. 6. Simvastatin 10 mg daily. DISCHARGE INSTRUCTIONS: Continue with physical therapy at the facility. FOLLOWUP: Follow up with PCP in 1 week. Dictated By: ROYER NIX/BERNIE Conf#: [id number] DID#: [id number] CC: AYAZ HEWITT MD; JAVON NAVA DO;*EndCC*
[2018-12-31] MEDS: FAMOTIDINE 20 MG TAB PO SCH (17:00)
[2018-12-31] MEDS ORDERED: BUMETANIDE 6 MG in DEXTROSE 5% 36 ML IV ONE (17:00)
[2019-01-01] VITALS (8 sets, daily range): BP systolic 110–144; BP diastolic 57–72; PULSE 63–84; RESP 19–20
[2019-01-01] MEDS: LEVOTHYROXINE 100 MCG TAB PO SCH (06:37)
--- NOTE | 2019-01-01 09:38 | PN ---
Date/Time of Note Date/Time of Note DATE: 01/01/19 TIME: 09:35 Subjective Patient is alert and responsive. No shortness of breath. Objective Vitals Vital Signs Date Temp Pulse Resp B/P (MAP) Pulse Ox O2 O2 Flow FiO2 Time Delivery Rate 01/01/19 97.4 83 20 114/57 94 08:08 (76) 01/01/19 7.0 00:31 12/31/18 Nasal 20:30 Cannula 12/30/18 40 12:15 Intake and Output 12/31/18 12/31/18 01/01/19 1515:00 23:00 07:00 IntakeIntake Total 100 ml 450 ml 150 ml OutputOutput Total 2100 ml 2450 ml 2700 ml BalanceBalance -2000 ml -2000 ml -2550 ml Lungs with bilateral rhonchi Cardiac irregularly irregular Abdomen soft nontender nondistended normoactive bowel sounds Extremities no clubbing cyanosis or edema Neurological patient moves all extremities. She is mentally slow but follows commands Results Result Diagram: 12/28/18 0609 12/31/18 0502 Medications Medications Current Medications IV Flush (NS 3 ml) 3 ml PER PROTOCOL IV ; Start 12/27/18 at 15:30 Amlodipine Besylate (Norvasc) 2.5 mg DAILY PO Last administered on 12/31/18 09:42; Admin Dose 2.5 MG; Start 12/28/18 at 09:00 Dapsone (Dapsone) 50 mg DAILY PO Last administered on 12/31/18 09:42; Admin Dose 50 MG; Start 12/27/18 at 15:30 Levothyroxine Sodium (Synthroid) 200 mcg BEFORE BREAKFAST PO Last administered on 01/01/19 06:37; Admin Dose 200 MCG; Start 12/28/18 at 07:00 Lisinopril (Zestril) 40 mg DAILY PO Last administered on 12/31/18 09:41; Admin Dose 40 MG; Start 12/27/18 at 15:30 Famotidine (Pepcid) 20 mg Q24H PO Last administered on 12/30/18 17:55; Admin Dose 20 MG; Start 12/27/18 at 17:00 Potassium Chloride (Klor-Con 20) 20 meq BID PO Last administered on 12/31/18 09:00; Admin Dose 20 MEQ; Start 12/28/18 at 09:00 Enoxaparin Sodium (Lovenox) 40 mg DAILY SC Last administered on 12/31/18 09:58; Admin Dose 40 MG; Start 12/28/18 at 09:00 Metoprolol Succinate (Toprol Xl) 50 mg BID PO Last administered on 12/31/18 09:42; Admin Dose 50 MG; Start 12/28/18 at 21:00 Haloperidol (Haldol) 2 mg Q4H PRN IV AGITATION/ANXIETY Last administered on 12/31/18at 03:26; Admin Dose 2 MG; Start 12/29/18 at 09:30 Albuterol/ Ipratropium (Duoneb) 3 ml Q6H RESP THERAPY PRN HHN SHORTNESS OF BREATH Last administered on 12/31/18at 01:44; Admin Dose 3 ML; Start 12/30/18 at 12:00 VTE Prophylaxis Risk score (from Nsg)>0 risk: 7 SCD applied (from Ns): Yes Lines/Catheters IV Catheter Type: Saline Lock Carvalho in Place: No Assessment/Plan Assessment/Plan 88-year-old female with fluid overload, status post aggressive diuresis Alzheimer's dementia Status post fall Chronic atrial fibrillation Arrange transfer to [facility] today Continue physical therapy Plan of care was discussed with her daughter and [id number] ROYER STOKES MD Jan 01, 2019 09:38
[2019-01-01] MEDS: METOPROLOL (XL) 50 MG TAB PO SCH (09:49)
[2019-01-01] MEDS: AMLODIPINE 2.5 MG TAB PO SCH (09:49)
[2019-01-01] MEDS: LISINOPRIL 20 MG TAB PO SCH (09:50)
[2019-01-01] MEDS: DAPSONE 100 MG TAB PO SCH (09:50)
--- NOTE | 2019-01-01 09:53 | CONS ---
Assessment/Plan Assessment/Plan Assessment/Plan (Daily) Assessment recommendations; 1. Patient admitted for mechanical fall with discovery of mild CHF with significant clinical improvement. 2. Chronic atrial fibrillation. 3. History of hypertension. 4. Hypothyroidism. 5. History of hypertension. 6. History of cardiac arrhythmia, status post pacemaker placement in the past. Continue on supportive care. Patient responding well to current treatment regimen. Consider discharge. Consultation Date/Type/Reason Admit Date/Time Dec 27, 2018 at 14:55 Initial Consult Date Type of Consult Pulmonary Patient's condition is stable. Still requiring 3-4 L nasal cannula. Denies any significant shortness of breath. Reason for Consultation HEENT exam; supple neck, positive JVD. No lymphadenopathy. No neck masses. Pupils are small bilaterally. Chest exam; diminished but clear breath sounds. S1-S2 audible, no murmurs. Irregular rhythm. Pacemaker in left chest wall. Abdomen exam; soft, nontender. No organomegaly. Bowel sounds audible. Extremity exam; no peripheral edema. [employer] exam; no focal deficit. Date/Time of Note DATE: 01/01/19 TIME: 09:51 Exam/Review of Systems Exam Vitals Vital Signs Date Temp Pulse Resp B/P (MAP) Pulse Ox O2 O2 Flow FiO2 Time Delivery Rate 01/01/19 97.4 83 20 114/57 94 08:08 (76) 01/01/19 7.0 00:31 12/31/18 Nasal 20:30 Cannula 12/30/18 40 12:15 Intake and Output 12/31/18 12/31/18 01/01/19 1414:59 22:59 06:59 IntakeIntake Total 100 ml 450 ml 150 ml OutputOutput Total 2100 ml 2450 ml 2700 ml BalanceBalance -2000 ml -2000 ml -2550 ml Results Result Diagram: 12/28/18 0609 12/31/18 0502 Medications Medication Current Medications IV Flush (NS 3 ml) 3 ml PER PROTOCOL IV ; Start 12/27/18 at 15:30 Amlodipine Besylate (Norvasc) 2.5 mg DAILY PO Last administered on 01/01/19at 09:49; Admin Dose 2.5 MG; Start 12/28/18 at 09:00 Dapsone (Dapsone) 50 mg DAILY PO Last administered on 01/01/19at 09:50; Admin Dose 50 MG; Start 12/27/18 at 15:30 Levothyroxine Sodium (Synthroid) 200 mcg BEFORE BREAKFAST PO Last administered on 01/01/19 06:37; Admin Dose 200 MCG; Start 12/28/18 at 07:00 Lisinopril (Zestril) 40 mg DAILY PO Last administered on 01/01/19 09:50; Admin Dose 40 MG; Start 12/27/18 at 15:30 Famotidine (Pepcid) 20 mg Q24H PO Last administered on 12/30/18 17:55; Admin Dose 20 MG; Start 12/27/18 at 17:00 Potassium Chloride (Klor-Con 20) 20 meq BID PO Last administered on 12/31/18 09:00; Admin Dose 20 MEQ; Start 12/28/18 at 09:00 Enoxaparin Sodium (Lovenox) 40 mg DAILY SC Last administered on 12/31/18 09:58; Admin Dose 40 MG; Start 12/28/18 at 09:00 Metoprolol Succinate (Toprol Xl) 50 mg BID PO Last administered on 01/01/19 09:49; Admin Dose 50 MG; Start 12/28/18 at 21:00 Haloperidol (Haldol) 2 mg Q4H PRN IV AGITATION/ANXIETY Last administered on 12/31/18 03:26; Admin Dose 2 MG; Start 12/29/18 at 09:30 Albuterol/ Ipratropium (Duoneb) 3 ml Q6H RESP THERAPY PRN HHN SHORTNESS OF BREATH Last administered on 12/31/18 01:44; Admin Dose 3 ML; Start 12/30/18 at 12:00 ALVERTO NOLASCO 4, 2019 09:53
[2019-01-01] MEDS: ENOXAPARIN 40 MG/0.4 ML SYG SC SCH (10:05)
[2019-01-01] MEDS ORDERED: POTASSIUM CHLORIDE 20 MEQ POWDER FOR ORAL SOLN PO SCH (10:45)
[2019-01-01] MEDS ORDERED: BUMETANIDE 3 MG in DEXTROSE 5% 18 ML IV ONE (11:00)
--- NOTE | 2019-01-01 15:41 | CONS ---
Assessment/Plan Cardiology NYHA: II Heart Failure Type: Acute on Chronic Heart Failure Type: Diastolic Assessment/Plan Hospital Course (Demo Recall) Mechanical fall Atrial fibrillation, taken off anticoagulation secondary to recurrent falls Acute decompensated diastolic congestive heart failure Preserved ejection fraction Mitral and tricuspid valve regurgitation Hypertension Dementia -Patient presents after mechanical fall at assisted living. CT head with no evidence of intracranial bleed. Patient has been on Coumadin. Review of medical chart and discussion with patient's family at bedside, patient not steady on her feet and concern for increasing fall risks including recently as a trauma. The risks of anticoagulation might outweigh the benefits. Consensus decision has been to stop anticoagulation. I did discuss this with the family. -Adjust Bumex to 1 mg p.o. twice daily and titrate as needed -Continue beta-jamel and CAREY inhibitor as tolerated -Maintain potassium above 4.0 and magnesium above 2.0. -DC planning Consultation Date/Type/Reason Admit Date/Time Dec 30, 2018 at 15:44 Initial Consult Date Type of Consult Cardiology Date/Time of Note DATE: 01/01/19 TIME: 15:40 24 HR Interval Summary Free Text/Dictation No shortness of breath currently. Family bedside Exam/Review of Systems Vital Signs Vitals Vital Signs Date Temp Pulse Resp B/P (MAP) Pulse Ox O2 O2 Flow FiO2 Time Delivery Rate 01/01/19 3.0 14:34 01/01/19 69 12:01 01/01/19 98.0 20 135/60 99 11:57 (85) 01/01/19 Nasal 08:10 Cannula 12/30/18 40 12:15 Intake and Output 12/31/18 12/31/18 01/01/19 1515:00 23:00 07:00 IntakeIntake Total 100 ml 450 ml 150 ml OutputOutput Total 2100 ml 2450 ml 2700 ml BalanceBalance -2000 ml -2000 ml -2550 ml Exam Exam Confused, no apparent distress, family at bedside Constitutional: alert Head: normocephalic Respiratory: other (Coarse breath sounds bilaterally, mild scattered crackles, no wheezing) Cardiovascular: irregular rhythm (S1-S2 heard) Gastrointestinal: soft, non-tender, bowel sounds Extremities: edema (Trace) Labs Result Diagram: 12/28/18 0609 12/31/18 0502 Medications Medications Current Medications IV Flush (NS 3 ml) 3 ml PER PROTOCOL IV ; Start 12/27/18 at 15:30 Amlodipine Besylate (Norvasc) 2.5 mg DAILY PO Last administered on 01/01/19 09:49; Admin Dose 2.5 MG; Start 12/28/18 at 09:00 Dapsone (Dapsone) 50 mg DAILY PO Last administered on 01/01/19 09:50; Admin Dose 50 MG; Start 12/27/18 at 15:30 Levothyroxine Sodium (Synthroid) 200 mcg BEFORE BREAKFAST PO Last administered on 01/01/19 06:37; Admin Dose 200 MCG; Start 12/28/18 at 07:00 Lisinopril (Zestril) 40 mg DAILY PO Last administered on 01/01/19 09:50; Admin Dose 40 MG; Start 12/27/18 at 15:30 Famotidine (Pepcid) 20 mg Q24H PO Last administered on 12/30/18 17:55; Admin Dose 20 MG; Start 12/27/18 at 17:00 Enoxaparin Sodium (Lovenox) 40 mg DAILY SC Last administered on 01/01/19 10:05; Admin Dose 40 MG; Start 12/28/18 at 09:00 Metoprolol Succinate (Toprol Xl) 50 mg BID PO Last administered on 01/01/19 09:49; Admin Dose 50 MG; Start 12/28/18 at 21:00 Haloperidol (Haldol) 2 mg Q4H PRN IV AGITATION/ANXIETY Last administered on 12/31/18 03:26; Admin Dose 2 MG; Start 12/29/18 at 09:30 Albuterol/ Ipratropium (Duoneb) 3 ml Q6H RESP THERAPY PRN HHN SHORTNESS OF BREATH Last administered on 12/31/18 01:44; Admin Dose 3 ML; Start 12/30/18 at 12:00 Potassium Chloride (Potassium Chloride Pwd/Soln) 20 meq BID PO Last administered on 01/01/19 11:27; Admin Dose 20 MEQ; Start 01/01/19 at 10:45 Sin Nava DO Jan 01, 2019 15:41
[2019-01-01] MEDS: ALBUTEROL/IPRATROPIUM (NEB) 3 ML AMP HHN PRN (16:59)
[2019-01-01] MEDS ORDERED: BUMETANIDE 1 MG TAB PO SCH (18:00)
== END 2019-01-01 17:25 | DRG 913 ==
LOC: E/R 12:32 → 6WM 14:55 → OBSVTOIN 12-30 15:44 → UNDODISIN 01-01 17:25
PROVIDERS: ADMIT Internal Medicine; ATTEND Internal Medicine
DX: S09.90XA Unspecified injury of head, initial encounter (principal); I50.33 Acute on chronic diastolic (congestive) heart failure; J96.01 Acute respiratory failure with hypoxia; I11.0 Hypertensive heart disease with heart failure; Z79.02 Long term (current) use of antithrombotics/antiplatelets; W19.XXXA Unspecified fall, initial encounter; E03.9 Hypothyroidism, unspecified; G30.9 Alzheimer's disease, unspecified; F02.80 Dementia in other diseases classified elsewhere, unspecified severity, without behavioral disturbance, psychotic disturbance, mood disturbance, and anxiety; E87.5 Hyperkalemia; I36.1 Nonrheumatic tricuspid (valve) insufficiency; I34.0 Nonrheumatic mitral (valve) insufficiency
CPT/HCPCS: 36415; 70450; 71045; 80048; 81001; 82550; 82553; 83036; 83735; 83880; 84100; 84484; 85025; 85610; 85730; 87070; 87086; 90686; 93005; 93306; 94640; 94664; 97110; 97116; 97161; 97530; G0378; A4310; J1630; J1650; J1940; J2060; J3475